=== PATIENT | female | born 2000 | race African-American/Black ===

== ENCOUNTER → 2024-02-09 | Emergency (ER) | payer MEDICAID ==
[~2024-02-09] VITALS: Ht 167.6 cm; Wt 77.3 kg
[2024-02-09 18:17] VITALS: BP 125/74; PULSE 84; RESP 16; TEMP 98.8; O2SAT 98
[2024-02-11 04:06] LABS: HIV 1-2 SCREEN 4TH GEN W/RFLX Non Reactive (Non Reactive)
== END | disposition still patient (30) ==
LOC: EMS 18:18
DX: A64 Unspecified sexually transmitted disease (principal); Z98.890 Other specified postprocedural states
CPT/HCPCS: 87389; 99283